=== PATIENT | female | born 1955 | race Caucasian/White ===

== ENCOUNTER 2023-06-20 17:58 | Emergency (ER) | payer MEDICARE, OTHER ==
[~2023-06-20] VITALS: Ht 172.7 cm; Wt 90.9 kg
[2023-06-20] MEDS ORDERED: SODIUM BICARBONATE 8.4% INJ 50ML SYRINGE IV ONE (17:59)
[2023-06-20] MEDS ORDERED: MAGNESIUM SULF 50% 40 MEQ/10 ML VL IV ONE (17:59)
[2023-06-20] MEDS ORDERED: CALCIUM CHLOR(10%) 100MG/ML 10ML SYRINGE IV ONE (17:59)
[2023-06-20] MEDS ORDERED: EPINEPHrine HCL 1 MG/10 ML SYRG IV ONE (17:59)
[2023-06-20] MEDS ORDERED: SODIUM BICARBONATE 8.4% INJ 50ML SYRINGE ONE (18:08)
[2023-06-20 18:26] VITALS: BP 0/0; PULSE 0; RESP 0; O2SAT 0
== END 2023-06-20 23:05 ==
LOC: ER 17:58 → EDBD 17:58 → ER 23:05
DX: I46.9 Cardiac arrest, cause unspecified (principal); J44.9 Chronic obstructive pulmonary disease, unspecified
CPT/HCPCS: 31500; 92950; 99291; J0171; J3475